=== PATIENT | male | born 1955 | race Caucasian/White ===

== ENCOUNTER 2017-08-16 10:33 | Emergency (ER) | payer SELFPAY ==
[2017-08-16 10:59] LABS: HEMATOCRIT 48.6 % (39.0-53.0); HEMOGLOBIN 16.7 g/dL (13.0-17.5); MEAN CORPUSCULAR HEMOGLOBIN 33 pg (25-35); MEAN CORPUSCULAR HGB CONC 34 g/dL (31-37); MEAN CORPUSCULAR VOLUME 96 fL (79-100); PLATELET COUNT 399 x10^3/uL (140-400); RED BLOOD COUNT 5.09 x10^6/uL (4.30-5.70); RED CELL DISTRIBUTION WIDTH 15.6 % (11.5-14.5)
[2017-08-16] MEDS ORDERED: LABETALOL 20 MG/4 ML DISP.SYRIN. IVP (11:00)
[2017-08-16 11:09] LABS: PARTIAL THROMBOPLASTIN TIME 26 SEC (24-38)
[2017-08-16] MEDS: IV NORMAL SALINE 1000ML BAG 1,000 ML IV (11:15)
[2017-08-16] MEDS ORDERED: fentaNYL PF VIAL 100 MCG/2 ML VIAL (11:17)
[2017-08-16 11:18] LABS: ANION GAP 15 (6-14); BLOOD UREA NITROGEN 9 mg/dL (8-26); CALCIUM 9.6 mg/dL (8.5-10.1); CARBON DIOXIDE 20 mmol/L (21-32); CHLORIDE 99 mmol/L (98-107); CREATININE 1.1 mg/dL (0.7-1.3); GFR 68.5; GLUCOSE 199 mg/dL (70-99); POTASSIUM 4.2 mmol/L (3.5-5.1); SODIUM 134 mmol/L (136-145)
[2017-08-16] MEDS: fentaNYL PF VIAL 100 MCG/2 ML VIAL IV (11:20)
[2017-08-16] MEDS: ONDANSETRON PF 4 MG/2 ML VIAL. IV (11:22)
[2017-08-16] MEDS ORDERED: ONDANSETRON PF 4 MG/2 ML VIAL. (11:24)
== END 2017-08-16 11:58 | disposition short-term general hospital (02) ==
LOC: ER 11:58
DX: I62.9 Nontraumatic intracranial hemorrhage, unspecified (principal); R00.0 Tachycardia, unspecified; R47.1 Dysarthria and anarthria
CPT/HCPCS: 36415; 70450; 80048; 85027; 85610; 85730; 93005; 96365; 96375; 99291; J2405; J3010; J7030; J7050